=== PATIENT | female | born 1975 | race Caucasian/White ===

== ENCOUNTER 2017-09-27 16:35 | Emergency (ER) | payer BC ==
[2017-09-27] MEDS ORDERED: NA CHLORIDE 0.9% 1,000 ML ONE (17:07)
[2017-09-27] MEDS ORDERED: FAMOTIDINE 20 MG/2 ML VIAL IV ONE (17:07)
[2017-09-27] MEDS ORDERED: ONDANSETRON 4 MG/2 ML VIAL ONE (17:07)
[2017-09-27 17:15] LABS: Absolute Lymphocytes (CBC) 0.9 K/uL (0.7-4.9); Absolute Monocytes 0.6 K/uL (0.1-1.3); Absolute Neutrophil 3.4 K/uL (1.8-8.0); Basophils % 0.5 % (0-1.3); Eosinophils % 1.3 % (0-4.4); Hematocrit 36.8 % (36.0-45.0); Lymphocytes % 18.5 % (15.3-44.8); MCH 28.4 pg (27.0-35.0); MCV 84.8 fL (80-100); MPV 7.8 fL (7.6-11.3); Monocytes % 11.3 % (3.3-12.3); RBC Red Blood Cell Count 4.34 M/uL (3.86-4.86)
[2017-09-27 17:27] LABS: Glucose Level 102 mg/dL (65-120); Lipase 35 U/L (22-51)
[2017-09-27 17:34] LABS: ALT/SGPT 33 IU/L (10-60); AST/SGOT 35 IU/L (10-42); Alkaline Phosphatase 85 IU/L (42-121); Amylase Level 58 U/L (28-100); BUN Blood Urea Nitrogen 7 mg/dL (6-20); Bilirubin Direct 0.1 mg/dL (0-0.2); Bilirubin Total 0.6 mg/dL (0.3-1.2); Phosphorus 1.9 mg/dL (2.5-4.3); Protein, Total 7.4 g/dL (6.0-8.3)
[2017-09-27 17:36] LABS: Bicarbonate 20 mEq/L (21-31); Sodium Level 135 mEq/L (135-145)
[2017-09-27 17:38] LABS: Potassium 2.6 mEq/L (3.6-5.0)
[2017-09-27 17:51] LABS: Urine Blood NEGATIVE (NEG); Urine Glucose NEGATIVE (NEG); Urine Protein NEGATIVE (NEG)
[2017-09-27 17:55] LABS: Urine Bacteria <20 /HPF (<20); Urine Culture Reflex Order NOT NEEDED; Urine RBC <5 /HPF (NONE SEEN)
[2017-09-27] MEDS ORDERED: DICYCLOMINE HCL 10 MG CAP ONE (17:55)
[2017-09-27] MEDS ORDERED: KCL 20 MEQ/100 mL IVPB 20 MEQ/100 ML BAG IV ONE (17:56)
[2017-09-27] MEDS ORDERED: POTASS/SODIUM PHOSPHATE 1 PKT POWD.PACK PO ONE (18:00)
[2017-09-27] MEDS ORDERED: NA CHLORIDE 0.9% 500 ML ONE (18:06)
[2017-09-27] MEDS ORDERED: DIPHENHYDRAMINE 50 MG/ML VIAL ONE (18:15)
[2017-09-27] MEDS ORDERED: MORPHINE 4 MG/ML SYR ONE (18:15)
--- NOTE | 2017-09-27 19:23 | RAD REPORT ---
EXAM DESCRIPTION: CTAbdomen Pelvis W Contrast - 09/27/2017 7:10 pm CLINICAL HISTORY: Abdominal pain. Abd pain;Flank pain COMPARISON: Chest Single View dated 08/08/2016 TECHNIQUE: Biphasic CT imaging of the abdomen and pelvis was performed with 100 ml non-ionic IV cont rast. All CT scans are performed using dose optimization technique as appropriate and may include automated exposure control or mA/KV adjustment according to patient size. FINDINGS: The lung bases are clear. The liver, spleen, pancreas, adrenal glands are within normal limits. Bilateral renal stones are pres ent without hydronephrosis. Cholecystectomy clips. No bowel obstruction, free air, free fluid or abscess. Mild mucosal thickening is seen involving the right colon, greatest in the hepatic flexure. The appendix is normal. No evidence of significant lym phadenopathy. IUD is present in the uterus. No suspicious bony findings. Small fat containing umbilical hernia. IMPRESSION: Bilateral nephrolithiasis without hydronephrosis. Mild right-sided colitis is possible.
--- NOTE | 2017-09-27 23:30 | ER ---
Nurse's Notes [facility] Name: Natacha Barber Age: 42 yrs Sex: Female : 1975 Arrival Date: 09/27/2017 Time: 16:37 Bed 5 Private MD: Collin Moore Diagnosis: Nausea and vomiting;Diarrhea, unspecified Presentation: 09/27 16:46 Presenting complaint: Patient states: N/V/D abd pain x 2 days. Flank pain. Other family rk2 members recently sick with same ss. Transition of care: patient was not received from another setting of care. Onset of symptoms was September 27, 2017. Risk Assessment: Do you want to hurt yourself or someone else? Patient reports no desire to harm self or others. Initial Sepsis Screen: Does the patient meet any 2 criteria? No. Patient's initial sepsis screen is negative. Does the patient have a suspected source of infection? No. Patient's initial sepsis screen is negative. Care prior to arrival: None. 16:46 Method Of Arrival: Wheelchair rk2 16:46 Acuity: DIMITRIOS 3 rk2 SUBACUTE NURSE: 09/28 00:52 LMP N/A - ao Historical: - Allergies: 09/27 16:47 Iodine; rk2 - PMHx: 17:15 Fibromyalgia; ibs; interstitial cystitis; sg - PSHx: 17:15 ; Cholecystectomy; sg - Immunization history:: Adult Immunizations up to date, Pneumococcal vaccine is not up to date, Flu vaccine is not up to date. - Social history:: Smoking status: Patient/guardian denies using tobacco, never smoked. - Ebola Screening: : Patient negative for fever greater than or equal to 101.5 degrees Fahrenheit, and additional compatible Ebola Virus Disease symptoms. Screenin:00 Abuse screen: Denies threats or abuse. Denies injuries from another. Nutritional sg screening: No deficits noted. Tuberculosis screening: No symptoms or risk factors identified. Never had TB. Fall Risk None identified. Assessment: 17:00 General: Appears in no apparent distress. uncomfortable, ill, well groomed, well sg developed, well nourished, Behavior is calm, cooperative, appropriate for age. Pain: Complains of pain in abdomen Pain does not radiate. Quality of pain is described as aching, crampy. 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 Full function Speech is normal, Facial symmetry appears normal, Pupils are PERRLA, Reports dizziness, weakness Denies blurred vision difficulty swallowing, paresthesias numbness headache photophobia diplopia. Cardiovascular: Patient's skin is warm and dry. Respiratory: Airway is patent Respiratory effort is even, unlabored, Respiratory pattern is regular, symmetrical, Breath sounds are clear. GI: Abdomen is flat, non-distended, Bowel sounds present X 4 quads. Abd is soft X 4 quads Reports diarrhea, nausea, vomiting. : Reports pain in bilateral flank(s). EENT: No deficits noted. No signs and/or symptoms were reported regarding the EENT system. Derm: Skin is pink, warm \T\ dry. Musculoskeletal: No deficits noted. No signs and/or symptoms reported regarding the musculoskeletal system. 19:55 General: Appears in no apparent distress. uncomfortable, ill, well groomed, well ao developed, well nourished, Behavior is calm, cooperative, appropriate for age. Pain: Complains of pain in abdomen Pain does not radiate. Quality of pain is described as aching, crampy. 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 Full function Speech is normal, Facial symmetry appears normal, Pupils are PERRLA, Reports dizziness, Denies blurred vision difficulty swallowing. Cardiovascular: Patient's skin is warm and dry. Respiratory: Airway is patent Respiratory effort is even, unlabored, Respiratory pattern is regular, symmetrical, Breath sounds are clear. GI: Abdomen is flat, non-distended, Bowel sounds present X 4 quads. : No signs and/or symptoms were reported regarding the genitourinary system. EENT: No signs and/or symptoms were reported regarding the EENT system. Derm: Skin is pink, warm \T\ dry. Skin temperature is warm. Musculoskeletal: No signs and/or symptoms reported regarding the musculoskeletal system. 20:50 Reassessment: Patient appears in no apparent distress at this time. Patient and/or ao family updated on plan of care and expected duration. Pain level reassessed. Patient is alert, oriented x 3, equal unlabored respirations, skin warm/dry/pink. Patient report a headache but states that she does not requires any more pain medication Patient states feeling better. 21:50 Reassessment: Patient appears in no apparent distress at this time. Patient and/or ao family updated on plan of care and expected duration. Pain level reassessed. Patient is alert, oriented x 3, equal unlabored respirations, skin warm/dry/pink. waiting on K to be complete. 22:55 Reassessment: Patient appears in no apparent distress at this time. Patient and/or ao family updated on plan of care and expected duration. Pain level reassessed. Patient is alert, oriented x 3, equal unlabored respirations, skin warm/dry/pink. Potassium had been redraw and send to the lab. waiting on results. 23:55 Reassessment: Patient appears in no apparent distress at this time. Patient and/or ao family updated on plan of care and expected duration. Pain level reassessed. Patient is alert, oriented x 3, equal unlabored respirations, skin warm/dry/pink. Patient to be discharge. 09/28 00:00 Reassessment: K-Phos not available in the hospital. Manpreet Guidry was notified and decided ao to cancel medication and DC patient. 00:48 Reassessment: Patient appears in no apparent distress at this time. DC instructions ao given to patient. patient agree with the POC and to follow up with PCP. Patient agree with the POC and to follow up with PCP. Vital Signs: 09/27 16:48 BP 127 / 67; Pulse 78; Resp 19; Temp 98.8; Pulse Ox 100% on R/A; rk2 17:55 BP 103 / 68; Pulse 61; Resp 17; Pulse Ox 18% on R/A; sg 18:30 BP 96 / 61; Pulse 75 MON; Resp 17; Pulse Ox 100% on R/A; sg 19:30 BP 110 / 66; Pulse 90; Resp 16; Pulse Ox 100% ; ao 20:50 BP 106 / 67; Pulse 70; Resp 18; Pulse Ox 100% on R/A; ao 21:55 BP 90 / 56; Pulse 73; Resp 16; Pulse Ox 100% on R/A; ao 22:50 BP 97 / 67; Pulse 72; Resp 16; Pulse Ox 99% on R/A; ao 23:50 BP 102 / 68; Pulse 82; Resp 18; Pulse Ox 100% ; Pain 0/10; ao 18 00:51 BP 99 / 54; Pulse 83; Resp 18; Pulse Ox 100% on R/A; Pain 5/10; ao ED Course: 09/27 16:37 Patient arrived in ED. as 16:38 Collin Moore MD is Private Physician. as 16:41 Manpreet Guidry PA is PHCP. cp 16:41 Giancarlo Raymundo MD is Attending Physician. cp 16:47 Triage completed. rk2 16:51 Arm band placed on. ph 17:00 Inserted saline lock: 20 gauge in right antecubital area, using aseptic technique. ph Blood collected. 17:03 Krish Martin, RN is Primary Nurse. sg 17:19 EKG done, by ED staff, reviewed by Manpreet SERRANO. dh3 17:44 Urine collected: clean catch specimen, clear. dh3 18:[address] cw1 19:09 CT completed. Patient tolerated procedure well. Patient moved back from CT. nj 19:10 CT Abd/Pelvis - W/Contrast: no oral contrast In Process Unspecified. EDMS 19:40 Kia Cook, RN is Primary Nurse. kr2 19:55 Isaiah Alberto, RN is Primary Nurse. ao 19:58 Patient has correct armband on for positive identification. Pulse ox on. NIBP on. ao 23:29 Collin Moore MD is Referral Physician. cp 09/28 00:07 Potassium Sent. ao 00:51 No provider procedures requiring assistance completed. IV discontinued, intact, ao bleeding controlled, No redness/swelling at site. Pressure dressing applied. 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 nausea at this time, provider notified): Zofran 4 mg IVP once; over 2 minutes 17:10 Drug: Pepcid 20 mg Route: IVP; Site: right antecubital; sg 18:00 Follow up: Response: No adverse reaction; No change in condition sg 18:12 Drug: Bentyl 20 mg Route: PO; sg 18:50 Follow up: Response: No adverse reaction sg 18:15 Drug: Potassium Chloride 20 mEq Route: IV; Rate: calculated rate; Site: right sg antecubital; 18:15 Drug: Zofran 4 mg Route: IVP; Site: right antecubital; sg 18:40 Follow up: Response: No adverse reaction; Nausea is decreased sg 18:15 Drug: NS 0.9% 1000 ml Route: IV; Rate: 125 ml/hr; Site: right antecubital; sg 18 07:09 Follow up: IV Status: Completed infusion; IV Intake: 1000ml ao 09/27 18:18 Drug: morphine 2 mg Route: IVP; Site: right antecubital; sg 18:40 Follow up: Response: No adverse reaction; Pain is unchanged, physician notified sg 18:35 Drug: Benadryl 50 mg Route: IVP; Site: right antecubital; sg 18:48 Follow up: Response: No adverse reaction sg 18:53 Drug: Potassium \T\ Sodium Phosphates 280 mg-160 mg-250 mg 1 packets Route: PO; sg 18:55 Follow up: Response: No adverse reaction sg 18 00:00 Drug: Potassium Effervescent Tablet 50 mEq Route: PO; ao 07:09 Follow up: Response: No adverse reaction ao 00:00 Drug: Ciprofloxacin 500 mg Route: PO; ao 07:09 Follow up: Response: No adverse reaction ao 00:07 Not Given (Not availble in ER): Potassium \T\ Sodium Phosphates 280 mg-160 mg-250 mg 1 ao packets PO once; mix packet with 75ml water or juice, stir well and administer promptly Intake: 07:09 IV: 1000ml; Total: 1000ml. ao Outcome: 09/27 23:30 Discharge ordered by MD. emery 09/28 00:51 Discharged to home ambulatory. ao Condition: stable Discharge instructions given to patient, Instructed on discharge instructions, follow up and referral plans. Demonstrated understanding of instructions, follow-up care, medications, Prescriptions given X 3. 00:52 Patient left the ED. ao Signatures: Dispatcher [employer] EDMS Krish Martin RN RN sg Martinez, Amelia as Woodley, Crystal cw1 Ban Mena RN RN ph Manpreet Guidry, ZACH PA Isaiah Shaw RN RN ao Jordan, Nathan nj Herrera Bri 3 Kia Cook, RN RN kr2 Sophie Leroy, RN RN rk2
--- NOTE | 2017-09-27 23:30 | EDPHYS ---
Physician Documentation [facility] Name: Natacha Barber Age: 42 yrs Sex: Female : 1975 Arrival Date: 09/27/2017 Time: 16:37 Bed 5 Private MD: Collin Moore ED Physician Giancarlo Raymundo HPI: 09/27 16:56 This 42 yrs old Female presents to ER via Wheelchair with complaints of cp Abdominal Pain, Vomiting/Diarrhea. 16:56 The patient presents with abdominal pain that is diffuse. Onset: The symptoms/episode cp began/occurred yesterday. Associated signs and symptoms: Pertinent positives: diarrhea, nausea, Pertinent negatives: blood in stools, constipation, dysuria, fever, vaginal discharge, vomiting. 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 - Social history:: Smoking status: Patient/guardian denies using tobacco, never smoked. - Ebola Screening: : Patient negative for fever greater than or equal to 101.5 degrees Fahrenheit, and additional compatible Ebola Virus Disease symptoms. ROS: 17:05 Constitutional: Positive for poor PO intake, Negative for body aches, chills, fever. cp 17:05 Eyes: Negative for injury, pain, redness, and discharge. cp 17:05 ENT: Negative for drainage from ear(s), ear pain, sore throat, difficulty swallowing, difficulty handling secretions. 17:05 Cardiovascular: Negative for chest pain, edema, palpitations. 17:05 Respiratory: Negative for cough, shortness of breath, wheezing. 17:05 Abdomen/GI: Positive for abdominal pain, nausea, vomiting, and diarrhea, Negative for constipation, dysphagia, hematemesis, black/tarry stool, rectal bleeding. 17:05 Back: Negative for pain at rest, pain with movement, radiated pain. 17:05 : Negative for urinary symptoms. 17:05 Skin: Negative for cellulitis, rash. 17:05 Neuro: Negative for altered mental status, headache, syncope, near syncope, weakness. 17:05 All other systems are negative. Exam: 17:20 Constitutional: The patient appears in no acute distress, alert, awake, cp non-diaphoretic, non-toxic, well developed, well nourished, uncomfortable. 17:20 Head/Face: Normocephalic, atraumatic. cp 17:20 Eyes: Periorbital structures: appear normal, Pupils: equal, round, and reactive to light and accomodation, Extraocular movements: intact throughout, Conjunctiva: normal, no exudate, no injection, Sclera: no appreciated abnormality, Lids and lashes: appear normal, bilaterally. 17:20 ENT: External ear(s): are unremarkable, Ear canal(s): are normal, clear, TM's: bulging, is not appreciated, bilaterally, dullness, bilaterally, erythema, is not appreciated, bilaterally, Nose: is normal, Mouth: Lips: moist, Oral mucosa: pink and intact, moist, Posterior pharynx: is normal, airway is patent, no erythema, no exudate, Voice: is normal. 17:20 Neck: ROM/movement: is normal, is supple, without pain, no range of motions limitations, no meningismus, no nuchal rigidity, Lymph nodes: no appreciated lymphadenopathy. 17:20 Chest/axilla: Inspection: normal, Palpation: is normal, no crepitus, no tenderness. 17:20 Cardiovascular: Rate: normal, Rhythm: regular, Edema: is not appreciated, JVD: is not appreciated. 17:20 Respiratory: the patient does not display signs of respiratory distress, Respirations: normal, no use of accessory muscles, no retractions, no splinting, no tachypnea, labored breathing, is not present, Breath sounds: are clear throughout, no decreased breath sounds, rhonchi, no stridor, no wheezing. 17:20 Abdomen/GI: Inspection: abdomen appears normal, Bowel sounds: active, all quadrants, Palpation: soft, in all quadrants, moderate abdominal tenderness, in all quadrants, rebound tenderness, is not appreciated, voluntary guarding, is elicited in all quadrants, involuntary guarding, is not appreciated. 17:20 Back: pain, is absent, ROM is normal. 17:20 Musculoskeletal/extremity: Exam is negative for bony tenderness, calf tenderness, decreased range of motion, edema. 17:20 Skin: cellulitis, is not appreciated, no rash present. 17:20 Neuro: Orientation: to person, place \T\ time. Mentation: lucid, able to follow commands, Cerebellar function: is grossly normal, Motor: moves all fours, strength is normal, Sensation: no obvious gross deficits. 17:22 ECG was reviewed by the Attending Physician. cp Vital Signs: 16:48 BP 127 / 67; Pulse 78; Resp 19; Temp 98.8; Pulse Ox 100% on R/A; rk2 17:55 BP 103 / 68; Pulse 61; Resp 17; Pulse Ox 18% on R/A; sg 18:30 BP 96 / 61; Pulse 75 MON; Resp 17; Pulse Ox 100% on R/A; sg 19:30 BP 110 / 66; Pulse 90; Resp 16; Pulse Ox 100% ; ao 20:50 BP 106 / 67; Pulse 70; Resp 18; Pulse Ox 100% on R/A; ao 21:55 BP 90 / 56; Pulse 73; Resp 16; Pulse Ox 100% on R/A; ao 22:50 BP 97 / 67; Pulse 72; Resp 16; Pulse Ox 99% on R/A; ao 23:50 BP 102 / 68; Pulse 82; Resp 18; Pulse Ox 100% ; Pain 0/10; ao 09/28 00:51 BP 99 / 54; Pulse 83; Resp 18; Pulse Ox 100% on R/A; Pain 5/10; ao MDM: 09/27 16:42 Patient medically screened. cp 18:00 Differential diagnosis: cholecystitis, Cholelithiasis, gastritis, pancreatitis, Peptic cp Ulcer Disease, Perf. Duodenal Ulcer, Perf. Gastric Ulcer, Pyelonephritis, Ureterolithiasis, urinary tract infection. 23:30 Data reviewed: vital signs, nurses notes, lab test result(s), radiologic studies, CT cp scan. 23:30 Response to treatment: the patient's symptoms have markedly improved after treatment, cp and as a result, I will discharge patient. Special discussion: Based on the patient's Hx, exam, and Dx evaluation, there is no indication for emergent surgery or inpatient Tx. It is understood by the patient/guardian that if the Sx's persist or worsen they need to return immediately for re-evaluation. ED course: VSS. Nausea and abdominal pain markedly improved, Vomiting resolved. Will discharge to home for continued monitoring. 09/27 17:02 Order name: Amylase, Serum; Complete Time: 17:39 cp 09/27 17:02 Order name: Basic Metabolic Panel; Complete Time: 17:38 cp 09/27 17:40 Interpretation: Normal except: K 2.6; CO2 20. cp 09/27 17:02 Order name: CBC with Diff; Complete Time: 17:38 cp 09/27 17:57 Interpretation: Reviewed. cp 09/27 17:02 Order name: Creatinine for Radiology; Complete Time: 17:38 cp 09/27 17:02 Order name: Hepatic Function; Complete Time: 17:39 cp 06 17:58 Interpretation: Normal except. cp 06 17:02 Order name: Lipase; Complete Time: 17:39 cp 09/27 17:02 Order name: Urine Microscopic Only; Complete Time: 17:57 cp 09/27 17:57 Interpretation: Reviewed. cp 09/27 17:02 Order name: Magnesium; Complete Time: 17:39 cp 09/27 17:02 Order name: Phosphorus; Complete Time: 17:39 cp 09/27 17:40 Interpretation: Abnormal: PHOS 1.9. cp 09/27 17:49 Order name: Urine Dipstick--Ancillary (enter results); Complete Time: 17:57 em1 09/27 17:49 Order name: Urine --Ancillary (enter results); Complete Time: 17:57 em1 09/27 18:12 Order name: CT Abd/Pelvis - W/Contrast: no oral contrast; Complete Time: 19:29 cp 09/27 19:31 Order name: Potassium cp 09/27 19:31 Order name: Potassium; Complete Time: 23:27 EDMS 09/27 23:27 Interpretation: Abnormal: K 3.2. cp 09/27 16:42 Order name: Urine Dipstick-Ancillary (obtain specimen); Complete Time: 17:44 cp 09/27 16:42 Order name: Urine Test (obtain specimen); Complete Time: 17:44 cp 09/27 17:02 Order name: EKG; Complete Time: 17:02 cp 09/27 17:02 Order name: IV Saline Lock; Complete Time: 17:11 cp 09/27 17:02 Order name: Labs collected and sent; Complete Time: 17:11 cp 09/27 17:02 Order name: EKG - Nurse/Tech; Complete Time: 17:20 cp 09/27 19:31 Order name: PO challenge; Complete Time: 20:00 cp EC:22 Rate is 71 beats/min. Rhythm is regular. [place] interval is normal. QRS interval is normal. cp QT interval is normal. No ST changes noted. Interpreted by me. Reviewed by me. 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 at this time, provider notified): Zofran 4 mg IVP once; over 2 minutes 17:10 Drug: Pepcid 20 mg Route: IVP; Site: right antecubital; sg 18:00 Follow up: Response: No adverse reaction; No change in condition sg 18:12 Drug: Bentyl 20 mg Route: PO; sg 18:50 Follow up: Response: No adverse reaction sg 18:15 Drug: Potassium Chloride 20 mEq Route: IV; Rate: calculated rate; Site: right sg antecubital; 18:15 Drug: Zofran 4 mg Route: IVP; Site: right antecubital; sg 18:40 Follow up: Response: No adverse reaction; Nausea is decreased sg 18:15 Drug: NS 0.9% 1000 ml Route: IV; Rate: 125 ml/hr; Site: right antecubital; sg 09/28 07:09 Follow up: IV Status: Completed infusion; IV Intake: 1000ml ao 09/27 18:18 Drug: morphine 2 mg Route: IVP; Site: right antecubital; sg 18:40 Follow up: Response: No adverse reaction; Pain is unchanged, physician notified sg 18:35 Drug: Benadryl 50 mg Route: IVP; Site: right antecubital; sg 18:48 Follow up: Response: No adverse reaction sg 18:53 Drug: Potassium \T\ Sodium Phosphates 280 mg-160 mg-250 mg 1 packets Route: PO; sg 18:55 Follow up: Response: No adverse reaction sg 09/28 00:00 Drug: Potassium Effervescent Tablet 50 mEq Route: PO; ao 07:09 Follow up: Response: No adverse reaction ao 00:00 Drug: Ciprofloxacin 500 mg Route: PO; ao 07:09 Follow up: Response: No adverse reaction ao 00:07 Not Given (Not availble in ER): Potassium \T\ Sodium Phosphates 280 mg-160 mg-250 mg 1 ao packets PO once; mix packet with 75ml water or juice, stir well and administer promptly Disposition: 13:39 Co-signature as Attending Physician, Giancarlo Raymundo MD. Disposition: 09/27/17 23:30 Discharged to Home. Impression: Nausea and vomiting, Diarrhea, unspecified. - Condition is Stable. - Discharge Instructions: Food Choices to Help Relieve Diarrhea, Adult, Diarrhea, Potassium Content of Foods, Nausea and Vomiting, Hypophosphatemia, Hypokalemia. - Prescriptions for Bentyl 20 mg Oral Tablet - take 1 tablet by ORAL route every 6 hours As needed; 20 tablet. Zofran 4 mg Oral Tablet - take 1 tablet by ORAL route every 12 hours As needed; 20 tablet. Potassium Chloride 20 meq Oral Packet - take 1 packet by ORAL route once daily for 3 days 1 packet in 6 (six) ounces of water or juice; Take after meal; 3 packet. - Medication Reconciliation Form, Thank You Letter, Antibiotic Education, Prescription Opioid Use form. - Follow up: Collin Moore MD; When: 1 - 2 days; Reason: Recheck today's complaints. - Problem is new. - Symptoms have improved. Signatures: Dispatcher [employer] EDMS Krish Martin RN RN Manpreet Bustos PA PA cp Ortiz, Alex RN Giancarlo Elizondo MD MD Sophie Leroy RN RN rk2 Corrections: (The following items were deleted from the chart) 09/27 17:40 17:40 Normal except: K 2.6. cp cp 09/28 00:52 09/27 23:30 09/27/2017 23:30 Discharged to Home. Impression: Nausea and vomiting; ao Diarrhea, unspecified. Condition is Stable. Forms are Medication Reconciliation Form, Thank You Letter, Antibiotic Education, Prescription Opioid Use. Follow up: Collin Moore; When: 1 - 2 days; Reason: Recheck today's complaints. Problem is new. Symptoms have improved. cp
[2017-09-27] MEDS ORDERED: CIPROFLOXACIN HCL 500 MG TAB ONE (23:42)
[2017-09-27] MEDS ORDERED: POTASSIUM 25 MEQ EFFERV TAB ONE (23:42)
[2017-09-28 02:20] VITALS: TEMP 98.8
[2017-09-28 02:28] VITALS: O2SAT 100
[2017-09-28 02:29] VITALS: BP 99/54
--- NOTE | 2017-09-28 06:14 | EKG ---
Test Date: 2017-09-27 Test Time: 17:15:43 Principal Electrical Engineer: CAMERON MEASUREMENT RESULTS: Intervals: Rate: 71 CA: 162 QRSD: 88 QT: 416 QTc: 452 Leland: P: 54 CA: 162 QRS: 21 T: 57 INTERPRETIVE STATEMENTS: Normal sinus rhythm Normal ECG Compared to ECG 08/08/2016 00:43:29 No significant changes Electronically Signed On 09-28-17 06:14:02 CDT by Gabo Owen
== END 2017-09-28 00:52 | disposition home or self-care (01) ==
LOC: ER 16:35
DX: R19.7 Diarrhea, unspecified (principal); Z91.048 Other nonmedicinal substance allergy status
CPT/HCPCS: 36415; 74177; 80048; 80076; 81003; 81015; 81025; 82150; 83690; 83735; 84100; 84132; 85025; 93005; 96361; 96374; 96375; 99285; J2405; J7030; Q9967

== ENCOUNTER 2018-02-27 22:36 | Emergency (ER) | payer BC ==
[2018-02-27 23:38] LABS: Absolute Lymphocytes (CBC) 2.7 K/uL (0.7-4.9); Absolute Monocytes 0.9 K/uL (0.1-1.3); Absolute Neutrophil 2.8 K/uL (1.8-8.0); Basophils % 0.2 % (0-1.3); Eosinophils % 7.3 % (0-4.4); Hematocrit 32.5 % (36.0-45.0); Lymphocytes % 39.6 % (15.3-44.8); MCH 29.5 pg (27.0-35.0); MCV 88.3 fL (80-100); MPV 8.4 fL (7.6-11.3); Monocytes % 12.3 % (3.3-12.3); RBC Red Blood Cell Count 3.68 M/uL (3.86-4.86)
[2018-02-27 23:52] LABS: ALT/SGPT 35 U/L (12-78); AST/SGOT 22 U/L (15-37); Albumin 3.6 g/dL (3.4-5.0); Alkaline Phosphatase 111 U/L (45-117); BUN Blood Urea Nitrogen 14 mg/dL (7-18); Bicarbonate 22 mmol/L (21-32); Bilirubin Direct < 0.1 mg/dL (0-0.2); Bilirubin Total 0.2 mg/dL (0.2-1.0); Glucose Level 101 mg/dL (74-106); Lipase 340 U/L (73-393); Protein, Total 7.2 g/dL (6.4-8.2); Sodium Level 143 mmol/L (136-145)
[2018-02-28] MEDS ORDERED: METHYLPREDNISOLONE 125 MG INJ ONE (00:50)
--- NOTE | 2018-02-28 01:06 | ER ---
Nurse's Notes [facility] Name: Natacha Barber Age: 43 yrs Sex: Female : 1975 Arrival Date: 02/27/2018 Time: 22:38 Bed 2 Private MD: Collin Moore Diagnosis: Peptic ulcer disease. Hypokalemia. Allergy Presentation: 02/27 22:51 Presenting complaint: Patient states: she is having upper right quadrant pain bb intermittently x 1 month then the last 3 days she has had swelling under her eyes and itching on her neck. Transition of care: patient was not received from another setting of care. Onset of symptoms was January 2018. Risk Assessment: Do you want to hurt yourself or someone else? Patient reports no desire to harm self or others. Initial Sepsis Screen: Does the patient meet any 2 criteria? No. Patient's initial sepsis screen is negative. Does the patient have a suspected source of infection? No. Patient's initial sepsis screen is negative. Care prior to arrival: None. 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 - Social history:: Smoking status: Patient/guardian denies using tobacco, Patient uses alcohol, occasionally. - Ebola Screening: : No symptoms or risks identified at this time. Screenin:54 Abuse screen: Denies threats or abuse. Nutritional screening: No deficits noted. ea Tuberculosis screening: No symptoms or risk factors identified. Fall Risk None identified. Assessment: 22:52 General: Appears uncomfortable, Behavior is calm, cooperative, appropriate for age. ea Pain: Complains of pain in right flank. Neuro: Level of Consciousness is awake, alert, obeys commands, Oriented to person, place, time, situation. Cardiovascular: Heart tones S1 S2 present Patient's skin is warm and dry. Respiratory: Airway is patent Respiratory effort is even, unlabored, Respiratory pattern is regular, symmetrical, Breath sounds are clear bilaterally. GI: No signs and/or symptoms were reported involving the gastrointestinal system. : Denies burning with urination. Derm: Skin is pink, warm \T\ dry. Musculoskeletal: Circulation, motion, and sensation intact. 23:15 Reassessment: Patient and/or family updated on plan of care and expected duration. Pain ea level reassessed. Patient is alert, oriented x 3, equal unlabored respirations, skin warm/dry/pink. Provider at bedside updating pt on plan of care. 02/28 00:17 Reassessment: Patient and/or family updated on plan of care and expected duration. Pain ea level reassessed. Patient is alert, oriented x 3, equal unlabored respirations, skin warm/dry/pink. Patient denies pain at this time. 01:20 Reassessment: Patient and/or family updated on plan of care and expected duration. Pain ea level reassessed. Patient is alert, oriented x 3, equal unlabored respirations, skin warm/dry/pink. Discharge instructions given to patient, verbalized the understanding of instructions. Patient denies pain at this time. Vital Signs: 02/27 22:52 BP 149 / 97; Pulse 90; Resp 16 S; Temp 99.1(O); Pulse Ox 96% on R/A; Weight 58.97 kg bb (R); Height 5 ft. 1 in. (154.94 cm) (R); Pain 7/10; 23:21 BP 106 / 52; Pulse 70; Resp 18; Pulse Ox 100% ; ea 02/28 00:00 BP 106 / 60; Pulse 68; Resp 18; Pulse Ox 100% on R/A; ea 01:21 BP 100 / 59; Pulse 70; Resp 18; Temp 98.6; Pulse Ox 98% ; Pain 0/10; ea 02/27 22:52 Body Mass Index 24.56 (58.97 kg, 154.94 cm) bb ED Course: 02/27 22:38 Patient arrived in ED. es 22:39 Collin Moore MD is Private Physician. es 22:45 Traci Shah, DESI is Primary Nurse. ea 22:52 Triage completed. bb 22:52 Arm band placed on Patient placed in an exam room, on a stretcher, on pulse oximetry. bb Family accompanied patient. 22:54 Patient has correct armband on for positive identification. Placed in gown. Bed in low ea position. Call light in reach. Side rails up X 1. 22:55 Inserted saline lock: 20 gauge in right antecubital area, using aseptic technique. ao Blood collected. 23:10 Asael Osullivan MD is Attending Physician. pkl 02/28 01:05 Dell Fay MD is Referral Physician. pkl 01:21 No provider procedures requiring assistance completed. IV discontinued, intact, ea bleeding controlled, No redness/swelling at site. Pressure dressing applied. Administered Medications: 00:47 Drug: SOLU-Medrol 125 mg Route: IVP; Site: right antecubital; ea 01:24 Follow up: Response: No adverse reaction ea 01:12 Drug: K-Dur 40 mEq Route: PO; ea 01:24 Follow up: Response: Medication administered at discharge. ea Outcome: 01:06 Discharge ordered by . pkl 01:22 Discharged to home ambulatory, with significant other. ea 01:22 Condition: improved 01:22 Discharge instructions given to patient, Instructed on discharge instructions, follow up and referral plans. medication usage, Demonstrated understanding of instructions, follow-up care, medications, Prescriptions given X 4. 01:24 Patient left the ED. ea Signatures: Asael Osullivan MD MD pkl Marisol Bacon Brenda, RN RN Isaiah Del Valle RN RN Traci Tolbert RN RN ea
--- NOTE | 2018-02-28 01:06 | EDPHYS ---
Physician Documentation [facility] Name: Natacha Barber Age: 43 yrs Sex: Female : 1975 Arrival Date: 02/27/2018 Time: 22:38 Bed 2 Private MD: Collin Moore ED Physician Asael Osullivan HPI: 02/28 00:53 This 43 yrs old Female presents to ER via Ambulatory with complaints of Flank pkl Pain, Eye Swelling, Facial Swelling, and itching. 00:53 The patient presents with abdominal pain in the upper abdomen. Onset: The pkl symptoms/episode began/occurred 1 month(s) ago, pain intermittent. The symptoms do not radiate. Associated signs and symptoms: Pertinent positives: swelling under her eyes and itching on her neck. 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 - Social history:: Smoking status: Patient/guardian denies using tobacco, Patient uses alcohol, occasionally. - Ebola Screening: : No symptoms or risks identified at this time. ROS: 02/28 00:53 ENT: Negative for injury, pain, and discharge. pkl Eyes: Positive for swelling, of the under both eyes. ENT: Negative for acute changes. Neck: Positive for itching around neck. Cardiovascular: Negative for chest pain. Respiratory: Negative for cough, shortness of breath. Abdomen/GI: Positive for abdominal pain, of the right upper quadrant and left upper quadrant. Back: Negative for acute changes. : Negative for urinary symptoms. MS/extremity: Negative for acute changes. Skin: Negative for rash. Neuro: Negative for altered mental status. Exam: 00:53 Head/Face: Normocephalic, atraumatic. Eyes: Pupils equal round and reactive to light, pkl extra-ocular motions intact. Lids and lashes normal. Conjunctiva and sclera are non-icteric and not injected. Cornea within normal limits. Periorbital areas with no swelling, redness, or edema. ENT: Nares patent. No nasal discharge, no septal abnormalities noted. Tympanic membranes are normal and external auditory canals are clear. Oropharynx with no redness, swelling, or masses, exudates, or evidence of obstruction, uvula midline. Mucous membranes moist. Neck: Trachea midline, no thyromegaly or masses palpated, and no cervical lymphadenopathy. Supple, full range of motion without nuchal rigidity, or vertebral point tenderness. No Meningismus. Chest/axilla: Normal chest wall appearance and motion. Nontender with no deformity. No lesions are appreciated. Cardiovascular: Regular rate and rhythm with a normal S1 and S2. No gallops, murmurs, or rubs. Normal PMI, no JVD. No pulse deficits. Respiratory: Lungs have equal breath sounds bilaterally, clear to auscultation and percussion. No rales, rhonchi or wheezes noted. No increased work of breathing, no retractions or nasal flaring. 00:53 Abdomen/GI: Bowel sounds: normal, Palpation: abdomen is soft and non-tender, mild abdominal tenderness, in the right upper quadrant and left upper quadrant. 00:53 Back: Exam negative for acute changes. 00:53 : Exam negative for acute changes. 00:53 Musculoskeletal/extremity: Exam is negative for acute changes. 00:53 Skin: Exam negative for rash. 00:53 Neuro: Orientation: is normal, Mentation: is normal, Cranial nerves: grossly normal, Motor: is normal. Vital Signs: 02/27 22:52 BP 149 / 97; Pulse 90; Resp 16 S; Temp 99.1(O); Pulse Ox 96% on R/A; Weight 58.97 kg bb (R); Height 5 ft. 1 in. (154.94 cm) (R); Pain 7/10; 23:21 BP 106 / 52; Pulse 70; Resp 18; Pulse Ox 100% ; ea 02/28 00:00 BP 106 / 60; Pulse 68; Resp 18; Pulse Ox 100% on R/A; ea 01:21 BP 100 / 59; Pulse 70; Resp 18; Temp 98.6; Pulse Ox 98% ; Pain 0/10; ea 02/27 22:52 Body Mass Index 24.56 (58.97 kg, 154.94 cm) bb MDM: 02/27 23:10 Patient medically screened. pkl 02/28 01:04 Data reviewed: vital signs, nurses notes, lab test result(s). pkl 02/27 23:20 Order name: Basic Metabolic Panel pkl 02/27 23:20 Order name: CBC with Diff pkl 02/27 23:20 Order name: Creatinine for Radiology pkl 02/27 23:20 Order name: Hepatic Function; Complete Time: 01:00 pkl 02/27 23:20 Order name: Lipase; Complete Time: 01:00 pkl 02/27 23:21 Order name: Basic Metabolic Panel; Complete Time: 01:00 EDMS 02/27 23:20 Order name: IV Saline Lock; Complete Time: 23:27 pkl 02/27 23:20 Order name: Labs collected and sent; Complete Time: :27 pkl 02/27 23:21 Order name: CBC with Automated Diff; Complete Time: 01:00 EDMS 02/27 23:21 Order name: Creatinine (Radiology Only); Complete Time: 01:00 EDMS Administered Medications: 00:47 Drug: SOLU-Medrol 125 mg Route: IVP; Site: right antecubital; ea 01:24 Follow up: Response: No adverse reaction ea 01:12 Drug: K-Dur 40 mEq Route: PO; ea 01:24 Follow up: Response: Medication administered at discharge. ea Disposition: 02/28/18 01:06 Discharged to Home. Impression: Peptic ulcer disease. Hypokalemia. Allergy. - Condition is Stable. - Prescriptions for Protonix 40 mg Oral Tablet, Delayed Release (E.C.) - take 1 tablet by ORAL route once daily; 15 tablet. Potassium Chloride 10 mEq Oral Tablet - take 1 tablet by ORAL route every 12 hours; 30 tablet. - Medication Reconciliation Form, Thank You Letter, Antibiotic Education, Prescription Opioid Use form. - Follow up: Dell Fay MD; When: 2 - 3 days; Reason: Re-evaluation by your physician. - Problem is new. - Symptoms have improved. Signatures: Dispatcher [employer] EDMT Asael Osullivan MD MD pkl Ballard, Brenda RN RN Traci Sin RN RN ea Corrections: (The following items were deleted from the chart) 01:24 01:06 02/28/2018 01:06 Discharged to Home. Impression: Peptic ulcer disease. ea Hypokalemia. Allergy. Condition is Stable. Forms are Medication Reconciliation Form, Thank You Letter, Antibiotic Education, Prescription Opioid Use. Follow up: Dell Fya; When: 2 - 3 days; Reason: Re-evaluation by your physician. Problem is new. Symptoms have improved. pkl
[2018-02-28] MEDS ORDERED: POTASSIUM CL SA 10 MEQ TAB PO ONE (01:18)
[2018-02-28 04:27] VITALS: BP 100/59; TEMP 98.6; O2SAT 98
== END 2018-02-28 01:24 | disposition home or self-care (01) ==
LOC: ER 22:36
DX: K27.9 Peptic ulcer, site unspecified, unspecified as acute or chronic, without hemorrhage or perforation (principal); E87.6 Hypokalemia
CPT/HCPCS: 36415; 80048; 80076; 83690; 85025; 96374; 99284; J2930

== ENCOUNTER 2020-08-20 15:10 | Emergency (ER) | payer BC ==
--- OUTSIDE RECORDS SUMMARY | 2020-08-20 15:13 | XMS REPORT | Continuity of Care Document ---
:[address] [facility] [place] [place] Address [address] [place] [address] Care Team Providers Name Role Phone Deepika Ramirez Primary Care Physician DR TAISHA Attending Clinician Unavailable DR JESSICA Attending Clinician Unavailable Stephen OSMAN, E Attending Clinician DR TAISHA Admitting Clinician Unavailable DR JESSICA Admitting Clinician Unavailable Payers Payer Name Policy Type Policy Number Effective Date Expiration Date S ource Problems This patient has no known problems. Allergies, Adverse Reactions, Alerts Allergy Allergy Status Severity Reaction(s) Onset Inactive Treating Comm ents Source Name Type Date Date Clinician No Known DA Active U 2007- [facility] Cont[facility] [place] No Known DA Active U 2007- [facility] Drug 2[facility]18 [facility] [place] No Known DA Active U 2007- [facility] Food 2-18 [facility] [place] No Known DA Active U 2007-04 [facility] Other 2[facility]18 [facility] [place] No Known DA Active U 2007- [facility] Drug 4-26 [facility] [place] Social History Social Habit Start Date Stop Date Quantity Comments Source Sex Assigned At [birth year] [facility] 00:00:00 00:00:00 Medications Ordered Filled Start Stop Current Ordering Indication Dosage Frequency Signature Comments Components Source Medication Medication Date Date Medication? Clinician (SIG) Name Name diclofenac 2018-04 Yes Q.25D Apply [place] on (VOLTAREN) 2-13 topically Meth jannet 1 % gel 00:00: 4 (four) st 00 times a day. Procedures This patient has no known procedures. Plan of Care Planned Activity Planned Date Details Comments Source Future Scheduled 2020-11-11 INFLUENZA VACCINE [facility] 00:00:00 [code = INFLUENZA VACCINE] Future Scheduled 2020-01-[address] [facility] - Test 00:00:00 (procedure) [code = [facility] 01054629] Future Scheduled 2019-12-[address] [facility] - Test 00:00:00 (#1) [code = [facility] INFLUENZA VACCINE (#1)] Future Scheduled 1996-01-20 Screening for [facility] - Test 00:00:00 malignant neoplasm Medical C enter of cervix (procedure) [code = 565459876] Future Scheduled 1996-01-20 Screening for [facility]odist Test 00:00:00 malignant neoplasm of cervix (procedure) [code = 777708847] Future Scheduled 1993 Hepatitis C [place] [facility] Test 00:00:00 screening (procedure) [code = 111239970] Future Scheduled 1991 COVID-19 VACCINE [place] [facility] Test 00:00:00 (1) [code = COVID-19 VACCINE (1)] Encounters Start End Encounter Admission Attending Care Care Encounter Source Date/Time Date/Time Type Type Clinicians Facility Department ID 2020-02-15 2020-02-15 [facility] [id number] 13:57:00 23:59:00 [facility] 2020-02-09 2020-02-09 Outpatient C JESSICA [facility] [id number] 13:02:00 23:59:00 GELY [facility] 2018-12-27 2018-12-27 [facility] [id number] 10:33:07 12:24:31 Visit Joseph Chi Adan [id number] 2018-12-03 2018-12-03 Office RAUL Mitchell [id number] 12:48:29 14:42:18 Visit Joseph Chi AMBULATOR [id number] Y [id number] Results Test Description Test Time Test Comments Results Result [facility] petey Comments - MRI BRAIN W WO 2019-02-25 Patient Name: CONT 14:51:00 CANDY BROOKS Unit No: [id number] EXAMS: CPT CODE: [id number] MRI BRAIN W WO CONT [id number] MRI BRAIN AND PITUITARY WITHOUT AND WITH CONTRAST, 02/25/2019 COMPARISON: None CLINICAL HISTORY: HYPERPROLACTINEMIA TECHNIQUE: Multiplanar MRI of the brain and pituitary was performed before and after the administration of intravenous contrast. FINDINGS: The ventricles were normal in size, shape, and position. No evidence of extraaxial fluid collection or midline shift. The diffusion weighted images show no areas of acute infarction. No areas of abnormal signal or abnormal contrast enhancement were seen. Flow voids in the [place] were patent. Pituitary gland was normal in signal and morphology. Pituitary infundibulum is midline. No mass effect is seen upon the pituitary infundibulum. Cavernous sinuses appeared unremarkable. There is no definite MR evidence of pituitary adenoma. IMPRESSION: Negative MRI of the brain. No definite MR evidence of pituitary adenoma. at 1451 Reported and signed by: Cristhian Garcia MD CC: Technologist: Evelyn Meza, RT(MRI) Trnscrbd D/ (1452) [id number] Orig Print D/T: S: 02/25/2019 (1456) [facility] NAME: CANDY BROOKS Radiology Department PHYS: Amelie Holder MD [address] Loc : 1975 AGE: 44 SEX: F [place], [place] [address] LOC: ERIS PHONE #: [phone] EXAM DATE: 02/25/2019 STATUS: REG CLI FAX #: [phone] RAD NO: [id number] Page 1 Signed Report UR HCG QUAL 2019-02-25 13:44:00 Test Item Value Reference Range Interpretation Comme nts UR HCG QUAL (test code = HCGQLU) NEGATIVE 1. Very dilute urine specimens, as indicated by a lowspecific gravity, may not contain rep resentative levels ofhCG. 2. False negative results may occur when the levels of hCGare below the sensitivity level of the test. If is st ill suspected, a first morningurine sp ecimen should be collected 48 ho urs later andtested. MR, ABDOMEN, WITHOUT / WITH IV [id number] 09:50:00FINAL REPORT TECHNIQUE: MRI of the abdomen with and without contrast.CONTRAST: 6 cc of gadolinium. CLINICAL HISTORY: Right upper quadrant abdominal pain COMPARISON: CT abdomen and pelvis from 03/05/2018 FINDINGS: LIVER: No hepatic signal abnormality. No focal hepatic lesions. BILIARY: The common bile duct is mildly enlarged measuring up to 7 mm without focal stricture, filling defects or obstructive mass. Findings are likely secondary to reservoir effect from cholecystectomy. No intraluminal filling defects. The gallbladder is surgically absent. Low medial insertion of the cystic duct. PANCREAS: No mass or ductal dilatation. The pancreas enhances homogeneously no atrophy. SPLEEN: No splenomegaly. ADRENALS: No nodules. KIDNEYS: No hydronephrosis or mass in the imaged portion of the kidneys. A few T2 hyperintense, T1 hypointense, nonenhancing lesions in both kidneys and the largest measures approximately 1 cm in the inferior pole of left kidney (series 15, image 62). The renal stones were better seen on the prior CT. PERITONEUM / RETROPERITONEUM: No upper abdominal free fluid. LYMPH NODES: No intraabdominal, retroperitoneal, pelvic or inguinal lymphadenopathy. VESSELS: The celiac trunk, superior and inferior mesenteric and bilateral renal arteries are patent. The portal, superior mesenteric and splenic veins are patent. BONES AND SOFT TISSUES: No abnormal bone marrow signal. A few T2 hyperintense lesions in the spine which demonstrate loss of signal on the fatsaturated images suggestive of vertebral hemangiomas for example a 1 cm lesion in the T12 vertebral body (series 7, image 20). A few T2 hyperintense enhancing lesions in both breasts. Incidentally noted 1.5 cm dominant follicle in the right ovary. This is almost certainly benign, and no follow-up imaging is recommended. The second portion of the duodenum is filled with fluid, likely due to secretion injection. IMPRESSION: Note, last images were obtained after secretin injection. If evaluation for duct expansion or ampulla of water dysfunction was desired, a repeat MRI can be obtained at no additional cost to the patient. 1.No abnormalities of the abdomen. Specifically no pancreatic mass or ductalabnormalities. 2.There are bilateral nodules in each breast. Further evaluation with a mammogram is recommended. Signed: Michael Callejas MDReport Verified Date/Time: 12/22/2018 09:50:21 Reading Location: [address] [address]
[2020-08-20 17:27] LABS: Absolute Lymphocytes (CBC) 1.1 K/uL (0.7-4.9); Hematocrit 33.6 % (36.0-45.0); Lymphocytes % 20.5 % (15.3-44.8); MPV 8.3 fL (7.6-11.3); RBC Red Blood Cell Count 3.94 M/uL (3.86-4.86)
--- NOTE | 2020-08-20 17:31 | RAD REPORT ---
EXAM DESCRIPTION: RAD - Chest Single View - 08/20/2020 5:26 pm CLINICAL HISTORY: SOB Chest pain. COMPARISON: <Comparisons> FINDINGS: Portable technique limits examination quality. The lungs are grossly clear. The heart is normal in size. No displaced fractures. IMPRESSION: No acute intrathoracic process suspected.
[2020-08-20 17:34] LABS: Protime INR 0.98
[2020-08-20 17:42] LABS: ALT/SGPT 28 U/L (12-78); AST/SGOT 16 U/L (15-37); Albumin 3.7 g/dL (3.4-5.0); Alkaline Phosphatase 106 U/L (45-117); BUN Blood Urea Nitrogen 14 mg/dL (7-18); Bicarbonate 21 mmol/L (21-32); Bilirubin Direct < 0.1 mg/dL (0-0.2); Bilirubin Total 0.2 mg/dL (0.2-1.0); Glucose Level 84 mg/dL (74-106); Magnesium 2.5 mg/dL (1.8-2.4); NT PRO-BNP 64 pg/mL (<125); Potassium 3.4 mmol/L (3.5-5.1); Protein, Total 7.6 g/dL (6.4-8.2); Sodium Level 142 mmol/L (136-145); Troponin (Emerg Dept Use Only) < 0.02 ng/mL (0.0-0.045)
[2020-08-20] MEDS ORDERED: NA CHLORIDE 0.9% 1,000 ML ONE (20:03)
[2020-08-20] MEDS ORDERED: dexAMETHasone 10 MG/ML VIAL ONE (20:03)
[2020-08-20] MEDS ORDERED: FAMOTIDINE 20 MG/2 ML VIAL IV ONE (21:04)
[2020-08-20] MEDS ORDERED: DIPHENHYDRAMINE 50 MG/ML VIAL ONE (21:04)
--- NOTE | 2020-08-20 21:09 | RAD REPORT ---
EXAM DESCRIPTION: CT - Chest For Pe Angio - 08/20/2020 8:59 pm CLINICAL HISTORY: Chest pain. dypnea, d-dimer elevated COMPARISON: No comparisons TECHNIQUE: CT angiogram of the pulmonary arteries was performed with MIP. All CT scans are performed using dose optimization technique as appropriate and may include automated exposure control or mA/KV adjustment according to patient size. FINDINGS: No evidence of pulmonary thromboembolism. No acute aortic finding demonstrated. The lungs are clear. No significant pericardial or pleural fluid. No concerning bony finding. Cholecystectomy clips. IMPRESSION: No evidence of pulmonary thromboembolism. No acute lung findings.
--- NOTE | 2020-08-20 21:27 | EDPHYS ---
Physician Documentation [facility] Name: Natacha Barber Age: 45 yrs Sex: Female : 1975 Arrival Date: 08/20/2020 Time: 15:28 Bed 12 Private MD: Jude Ramirez V ED Physician Massimo Lowe HPI: 08/20 16:40 This 45 yrs old Female presents to ER via Wheelchair with complaints of jmm shortness of breath. 16:40 The patient or guardian reports cough. Onset: The symptoms/episode began/occurred jmm gradually, 4 day(s) ago. Modifying factors: The symptoms are alleviated by nothing. the symptoms are aggravated by nothing. Associated signs and symptoms: Pertinent positives: SOB, presyncope, congestion. The patient has not experienced similar symptoms in the past. 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 - Social history:: Smoking status: unknown. ROS: 16:40 Constitutional: Positive for body aches, chills. jmm 16:40 ENT: Positive for sinus congestion. 16:40 Respiratory: Positive for cough. 16:40 All other systems are negative. Exam: 16:40 Head/Face: atraumatic. Eyes: EOMI, no conjunctival erythema appreciated ENT: Moist jmm Mucus Membranes Neck: Trachea midline, Supple Chest/axilla: Normal chest wall appearance and motion. Cardiovascular: Regular rate and rhythm. No edema appreciated Respiratory: Normal respirations, no respiratory distress appreciated Abdomen/GI: Non distended, soft Back: Normal ROM Skin: General appearance color normal MS/ Extremity: Moves all extremities, no obvious deformities appreciated, no edema noted to the lower extremities Neuro: Awake and alert, normal gait Psych: Behavior is normal, Mood is normal, Patient is cooperative and pleasant 16:40 Constitutional: The patient appears alert, awake, anxious, uncomfortable. Vital Signs: 15:56 BP 124 / 74; Pulse 62; Resp 19 S; Temp 97.8(TE); Pulse Ox 99% on R/A; Weight 54.43 kg jd3 (R); Height 5 ft. 0 in. (152.40 cm) (R); Pain 0/10; 17:17 BP 96 / 63; Pulse 61; Resp 16 S; Pulse Ox 99% on R/A; ca1 18:37 BP 101 / 69; Pulse 69; Resp 16 S; Pulse Ox 99% on R/A; ca1 15:56 Body Mass Index 23.44 (54.43 kg, 152.40 cm) jd3 MDM: 16:37 Patient medically screened. [facility] 21:25 Data reviewed: vital signs, nurses notes. Counseling: I had a detailed discussion with nella the patient and/or guardian regarding: the historical points, exam findings, and any diagnostic results supporting the discharge/admit diagnosis, lab results, radiology results, the need for outpatient follow up, to return to the emergency department if symptoms worsen or persist or if there are any questions or concerns that arise at home. ED course: Patient is alert and non toxic in appearance in the ED. patient advised to follow up with pcp and otherwise given strict return precautions. Patient understood and agrees with the plan of care. . 08/20 16:39 Order name: Basic Metabolic Panel [facility] 08/20 16:39 Order name: CBC with Diff [facility] 08/20 16:39 Order name: LFT's; Complete Time: 17:46 [facility] 08/20 16:39 Order name: Magnesium; Complete Time: 17:46 [facility] 08/20 16:39 Order name: NT PRO-BNP; Complete Time: 17:46 [facility] 08/20 16:39 Order name: PT-INR; Complete Time: 17:46 [facility] 08/20 16:39 Order name: Troponin (emerg Dept Use Only); Complete Time: 17:46 [facility] 08/20 16:39 Order name: Strep; Complete Time: 19:03 [facility] 08/20 16:39 Order name: Basic Metabolic Panel; Complete Time: 17:46 [facility] 08/20 16:39 Order name: CBC with Automated Diff; Complete Time: 17:31 [facility] 08/20 19:03 Order name: Throat Culture [facility] 08/20 19:13 Order name: SARS-COV-2 RT PCR; Complete Time: 19:15 [facility] 08/20 19:20 Order name: D-Dimer; Complete Time: 20:41 [facility] 08/20 16:39 Order name: XRAY Chest (1 view); Complete Time: 17:36 [facility] 08/20 16:39 Order name: EKG; Complete Time: 16:39 [facility] 08/20 16:39 Order name: Cardiac monitoring; Complete Time: 17:01 [facility] 08/20 16:39 Order name: EKG - Nurse/Tech; Complete Time: 17:17 [facility] 08/20 16:39 Order name: IV Saline Lock; Complete Time: 17:17 [facility] 08/20 16:39 Order name: Labs collected and sent; Complete Time: 17:17 [facility] 08/20 16:39 Order name: O2 Per Protocol; Complete Time: 17:17 [facility] 08/20 16:39 Order name: O2 Sat Monitoring; Complete Time: 17:17 [facility] 08/20 20:31 Order name: CT Chest For PE Angio; Complete Time: 21:11 jmm Administered Medications: 20:00 Drug: NS 0.9% 1000 ml Route: IV; Rate: 1 bolus; Site: right antecubital; iw 22:10 Follow up: IV Status: Completed infusion iw 20:00 Drug: Decadron - Dexamethasone 10 mg Route: IVP; Site: right antecubital; iw 22:10 Follow up: Response: No adverse reaction iw 20:49 Drug: diphenhydrAMINE 25 mg Route: IVP; Site: right antecubital; iw 22:09 Follow up: Response: No adverse reaction iw 20:49 Drug: Pepcid (famotidine) 20 mg Route: IVP; Site: right antecubital; iw 22:09 Follow up: Response: No adverse reaction iw 22:09 Not Given (Patient Refused): Rocephin (cefTRIAXone) 1 grams IV at calculated rate once; iw Given slow IV push per pharmacy instructions Disposition: 08/21 06:52 Co-signature as Attending Physician, Massimo Lowe MD. rn Disposition: 08/20/20 21:26 Discharged to Home. Impression: Syncope and collapse, Acute upper respiratory infection, unspecified, Acute pharyngitis. - Condition is Stable. - Discharge Instructions: Near-Syncope, Pharyngitis, Upper Respiratory Infection, Adult. - Prescriptions for Augmentin 875- 125 mg Oral Tablet - take 1 tablet by ORAL route every 12 hours for 10 days; 20 tablet. - Medication Reconciliation Form, Thank You Letter, Antibiotic Education, Prescription Opioid Use form. - Follow up: uJde Ramirez MD; When: 2 - 3 days; Reason: Recheck today's complaints, Continuance of care, Re-evaluation by your physician. Signatures: Dispatcher [employer] EDNY Nehemiah Fall PA PA jmm Williams, Irene, RN RN iw Nieto, Roman, MD MD rn Davies, Jonathon, RN RN jd3 Corrections: (The following items were deleted from the chart) 08/20 18:21 16:39 CORONAVIRUS+MR.LAB.BRZ ordered. [facility] EDNY 22:10 21:26 08/20/2020 21:26 Discharged to Home. Impression: Syncope and collapse; Acute iw upper respiratory infection, unspecified; Acute pharyngitis. Condition is Stable. Forms are Medication Reconciliation Form, Thank You Letter, Antibiotic Education, Prescription Opioid Use. Follow up: Jude Ramirez; When: 2 - 3 days; Reason: Recheck today's complaints, Continuance of care, Re-evaluation by your physician. nella
--- NOTE | 2020-08-20 21:27 | ER ---
Nurse's Notes [facility] Name: Natacha Barber Age: 45 yrs Sex: Female : 1975 Arrival Date: 08/20/2020 Time: 15:28 Bed 12 Private MD: Jude Ramirez V Diagnosis: Syncope and collapse;Acute upper respiratory infection, unspecified;Acute pharyngitis Presentation: 08/20 15:54 Chief complaint: Patient states: "I started feeling sick around Thursday, on Thursday I jd3 started getting short of breath and feeling fatigue.". Coronavirus screen: cough unrelated to allergies, difficulty breathing, fatigue, Client presents with at least one sign or symptom that may indicate coronavirus-19. Standard/surgical mask placed on the client. Provider contacted for isolation considerations. Ebola Screen: Patient negative for fever greater than or equal to 101.5 degrees Fahrenheit, and additional compatible Ebola Virus Disease symptoms. Initial Sepsis Screen: Does the patient meet any 2 criteria? No. Patient's initial sepsis screen is negative. Does the patient have a suspected source of infection? No. Patient's initial sepsis screen is negative. Risk Assessment: Do you want to hurt yourself or someone else? Patient reports no desire to harm self or others. Onset of symptoms was August 17, 2020. 15:54 Method Of Arrival: Wheelchair j 15:54 Acuity: DIMITRIOS 3 jd3 Triage Assessment: 16:22 General: Appears in no apparent distress. Respiratory: Onset: The symptoms/episode ca1 began/occurred the patient has mild shortness of breath. 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 - Social history:: Smoking status: unknown. Screenin:20 Abuse screen: Denies threats or abuse. Denies injuries from another. Nutritional ca1 screening: No deficits noted. Tuberculosis screening:. Fall Risk IV access (20 points). Assessment: 16:20 General: Appears in no apparent distress. comfortable, Behavior is calm, cooperative, ca1 appropriate for age, Reports feeling ill for > 3 days, fatigue for >3 days. Pain: Denies pain. Neuro: Level of Consciousness is awake, alert, obeys commands, Oriented to person, place, time, situation, Reports dizziness. Cardiovascular: Heart tones S1 S2 present Capillary refill < 3 seconds Patient's skin is warm and dry. Rhythm is regular. Respiratory: Reports shortness of breath on exertion Airway is patent Respiratory effort is even, unlabored, Respiratory pattern is regular, Breath sounds are clear bilaterally. GI: Abdomen is flat, non-distended, Bowel sounds present X 4 quads. Abd is soft and non tender X 4 quads. : No signs and/or symptoms were reported regarding the genitourinary system. EENT: No signs and/or symptoms were reported regarding the EENT system. Derm: Skin is intact, is healthy with good turgor, Skin is pink, warm \\T\\ dry. Musculoskeletal: Circulation, motion, and sensation intact. Capillary refill < 3 seconds. 17:17 Reassessment: Patient appears in no apparent distress at this time. Patient and/or ca1 family updated on plan of care and expected duration. Pain level reassessed. Patient is alert, oriented x 3, equal unlabored respirations, skin warm/dry/pink. 18:37 Reassessment: Patient appears in no apparent distress at this time. Patient and/or ca1 family updated on plan of care and expected duration. Pain level reassessed. Patient is alert, oriented x 3, equal unlabored respirations, skin warm/dry/pink. 20:28 Reassessment: Patient appears in no apparent distress at this time. Patient and/or iw family updated on plan of care and expected duration. Pain level reassessed. Patient is alert, oriented x 3, equal unlabored respirations, skin warm/dry/pink. 22:09 Reassessment: Patient appears in no apparent distress at this time. Patient and/or iw family updated on plan of care and expected duration. Pain level reassessed. Patient is alert, oriented x 3, equal unlabored respirations, skin warm/dry/pink. Patient states feeling better. Patient states symptoms have improved. Vital Signs: 15:56 BP 124 / 74; Pulse 62; Resp 19 S; Temp 97.8(TE); Pulse Ox 99% on R/A; Weight 54.43 kg jd3 (R); Height 5 ft. 0 in. (152.40 cm) (R); Pain 0/10; 17:17 BP 96 / 63; Pulse 61; Resp 16 S; Pulse Ox 99% on R/A; ca1 18:37 BP 101 / 69; Pulse 69; Resp 16 S; Pulse Ox 99% on R/A; ca1 15:56 Body Mass Index 23.44 (54.43 kg, 152.40 cm) jd3 ED Course: 15:28 Patient arrived in ED. am2 15:29 Jude Ramirez MD is Private Physician. am2 15:56 Triage completed. jd3 15:58 Arm band placed on. jd3 16:20 Argenis Montero, RN is Primary Nurse. ca1 16:20 Patient has correct armband on for positive identification. Placed in gown. Bed in low ca1 position. Call light in reach. Side rails up X 1. Pulse ox on. NIBP on. Warm blanket given. 16:24 Nehemiah Fall PA is PHCP. jmm 16:24 Massimo Lowe MD is Attending Physician. jmm 17:18 Initial lab(s) drawn, by ak, sent to lab. Inserted saline lock: 20 gauge in right ca1 antecubital area, using aseptic technique. Blood collected. 17:26 XRAY Chest (1 view) In Process Unspecified. EDMS 20:58 CT Chest For PE Angio In Process Unspecified. EDMS 21:26 Jude Ramirez MD is Referral Physician. jmm 22:09 No provider procedures requiring assistance completed. IV discontinued, intact, iw bleeding controlled, No redness/swelling at site. Pressure dressing applied. Administered Medications: 20:00 Drug: NS 0.9% 1000 ml Route: IV; Rate: 1 bolus; Site: right antecubital; iw 22:10 Follow up: IV Status: Completed infusion iw 20:00 Drug: Decadron - Dexamethasone 10 mg Route: IVP; Site: right antecubital; iw 22:10 Follow up: Response: No adverse reaction iw 20:49 Drug: diphenhydrAMINE 25 mg Route: IVP; Site: right antecubital; iw 22:09 Follow up: Response: No adverse reaction iw 20:49 Drug: Pepcid (famotidine) 20 mg Route: IVP; Site: right antecubital; iw 22: Follow up: Response: No adverse reaction iw 22: Not Given (Patient Refused): Rocephin (cefTRIAXone) 1 grams IV at calculated rate once; iw Given slow IV push per pharmacy instructions Outcome: 21:26 Discharge ordered by MD. carmen 22:09 Discharged to home ambulatory. iw 22: Condition: good 22:09 Discharge instructions given to patient, Instructed on discharge instructions, follow up and referral plans. medication usage, Demonstrated understanding of instructions, follow-up care, medications, Prescriptions given X 1. 22:10 Patient left the ED. iw Signatures: Dispatcher [employer] EDMS Nehemiah Fall PA PA jmm Williams, Irene, DESI RN iw Jacqueline Tamayo Jonathon, RN RN jArgenis Butts RN RN ca1 Corrections: (The following items were deleted from the chart) 18:21 17:17 CORONAVIRUS+MR.LAB.BRZ drawn and sent. ca1 EDMS
[2020-08-20] MEDS ORDERED: CEFTRIAXONE/SWI 1gm 1 GM/10 ML SYR ONE (22:02)
[2020-08-20 23:44] VITALS: TEMP 97.8; O2SAT 99
[2020-08-20 23:48] VITALS: BP 101/69
--- NOTE | 2020-08-21 17:43 | EKG ---
Test Date: 2020-08-20 Test Time: 17:07:24 Teaching Aide: KIZZY MEASUREMENT RESULTS: Intervals: Rate: 59 SD: 146 QRSD: 74 QT: 432 QTc: 427 [place]: P: 68 SD: 146 QRS: 52 T: 66 INTERPRETIVE STATEMENTS: Sinus bradycardia Otherwise normal ECG Compared to ECG 09/27/2017 17:15:43 Sinus rhythm no longer present Electronically Signed On 08-21-20 17:40:20 CDT by Kuldeep Dumas
== END 2020-08-20 22:10 | disposition home or self-care (01) ==
LOC: ER 15:10
DX: J06.9 Acute upper respiratory infection, unspecified (principal); J02.9 Acute pharyngitis, unspecified; Z20.822 Contact with and (suspected) exposure to COVID-19; Z91.048 Other nonmedicinal substance allergy status
CPT/HCPCS: 87070; 85025; 80048; 36415; 83735; 85610; 85379; 80076; 87081; 84484; 83880; 71275; 71045; U0003; Q9967; J1200; J1100; J0696; J7030; 93005; 96361; 96374; 96375; 99284